=== PATIENT | male | born 1965 | race African-American/Black ===

== ENCOUNTER 2022-01-20 14:33 | Emergency (ER) | payer OTHER ==
[~2022-01-20] VITALS: Ht 190.5 cm; Wt 111.1 kg
[2022-01-20] MEDS ORDERED: OSEL75CA PO ×2 (18:27→18:31)
== END 2022-01-20 19:11 | disposition home or self-care (01) ==
LOC: ER 14:33
DX: J09.X2 Influenza due to identified novel influenza A virus with other respiratory manifestations (principal); Z20.828 Contact with and (suspected) exposure to other viral communicable diseases